=== PATIENT | female | born 1985 | race Caucasian/White ===

== ENCOUNTER 2018-03-21 06:14 | Inpatient (IN) | payer BC ==
[2018-03-21] MEDS ORDERED: ceFOXitin 2 GM IVPREMIX* 2 GM/50 ML BAG ONE (06:24)
[2018-03-21] MEDS ORDERED: Sodium Citrate/Citric Acid* 15 ML UDC ONE (07:45)
[2018-03-21] MEDS ORDERED: Morphine PF AMP (0.5MG/ML)* 5 MG/10 ML AMP ONE (07:51)
[2018-03-21] MEDS ORDERED: Bupivacaine-MPF SPINAL* 7.5 MG/ML - 2ML AMP ONE (07:51)
[2018-03-21] MEDS ORDERED: Lidocaine 1%* 5 ML VIAL ONE (07:55)
[2018-03-21] MEDS ORDERED: Ondansetron INJ* 2 MG/ML VIAL IV PRN ×2 (08:34→08:35)
[2018-03-21] MEDS ORDERED: Naloxone* 0.4 MG/ML 1 ML VIAL IV PRN ×2 (08:34→08:35)
[2018-03-21] MEDS ORDERED: fentaNYL* 50 MCG/ML 2 ML VIAL (100 MCG VIAL) IV PRN (08:34)
[2018-03-21] MEDS ORDERED: diPHENhydraMINE IV* 50 MG/ML 1 ml VIAL (BENADRYL) IV PRN (08:35)
[2018-03-21] MEDS ORDERED: DiMENhydriNATE IV* 50 MG/ML VIAL IV PUSH PRN (08:35)
[2018-03-21] MEDS ORDERED: Nalbuphine* 10 MG/ML 1 ML VIAL IV PRN (08:35)
[2018-03-21] MEDS ORDERED: oxyCODONE/Acetamin 5/325 MG* TAB PO PRN (08:35)
[2018-03-21] MEDS ORDERED: Ketorolac INJ* 30 MG/ML 1 ML VIAL ONE ×2 (09:00→14:29)
[2018-03-21] MEDS ORDERED: Dibucaine 1% 28.35 GM TUBE PR PRN (09:28)
[2018-03-21] MEDS ORDERED: Glycerin ADULT SUPP PR PRN (09:28)
[2018-03-21] MEDS ORDERED: Witch Hazel PAD* JAR TOPICAL PRN (09:28)
[2018-03-21] MEDS ORDERED: Oxytocin in LR* 20 UNITS/1,000 ML BAG IVPB SCH (10:00)
[2018-03-21] MEDS ORDERED: oxyCODONE/Acetamin 5/325 MG* TAB ONE (14:29)
[2018-03-21] MEDS: Ketorolac INJ* 30 MG/ML 1 ML VIAL IV PRN ×2 (14:33→21:42)
[2018-03-21] MEDS: Docusate CAP* 100 MG PO SCH ×2 (14:55→21:41)
[2018-03-21] MEDS: Simethicone TAB* 80 MG TAB.CHEW PO SCH ×2 (14:55→21:42)
[2018-03-22] MEDS ORDERED: oxyCODONE/Acetamin 5/325 MG* TAB PO PRN ×2 (00:05)
--- NOTE | 2018-03-22 01:18 | OP ---
DATE OF OPERATION: 03/21/18 - ROOM #117 DATE OF : 85 SURGEON: Anna Rangel MD COOK SOUP: Dr. Javier Dupont. ANESTHESIOLOGIST: Dr. Sosa. ANESTHESIA: Spinal. PRE-OP DIAGNOSIS: Intrauterine at 39 weeks, desires repeat section. POST-OP DIAGNOSIS: Intrauterine at 39 weeks, desires repeat section, delivered. OPERATIVE PROCEDURE: Repeat low transverse section. FINDINGS: Revealed a vertex female infant with Apgars 9 at 1 minute and 9 at 5 minutes, weight was 9 pounds 5 ounces, nuchal cord x1, no meconium. Normal- appearing tubes and ovaries bilaterally. Placenta manually extracted intact 3- vessel cord. Uterine cavity without evidence of retained membranes or placental tissue. ESTIMATED BLOOD LOSS: 500 cc. URINE OUTPUT: 100 cc of clear yellow urine. FLUIDS: 1600 cc of crystalloid. COMPLICATIONS: None apparent. DISPOSITION: Stable to recovery room. DESCRIPTION OF PROCEDURE: The patient was placed in dorsal lithotomy position. Abdomen was prepped and draped in a sterile standard fashion. The patient was identified with the universal protocol for correct patient, procedure, and position. After testing anesthesia to appropriate level, an incision was made through prior incision with a scalpel and this was carried down through to the fascia. Fascia was scored in the midline and the fascial incision was extended laterally and superiorly using Sampson scissors. Fascia was superiorly with blunt and sharp dissection. The peritoneum was then entered sharply and then the peritoneal incision was extended bluntly. Bladder blade was inserted. Lower uterine segment was identified. An Allis was used to tent up on the lower uterine segment. An incision was made with a scalpel and was carried down through to membranes. The incision was extended laterally and superiorly with bandage scissors. An amniotomy was created with an Allis with clear fluid. Head was delivered. Nuchal cord reduced. Anterior and posterior shoulder delivered. Cord was allowed to pulse for greater than 60 seconds. The cord was then clamped and cut and the was handed off to awaiting trade sales assistant, Dr. Andrade. Appropriate cord blood was obtained. Placenta was then manually extracted and noted to be intact and 3-vessel. Normal tubes and ovaries were appreciated and uterine cavity was explored and noted to be free of any membranes or placental tissue. The uterine incision itself was reapproximated in 2 layers, the first layer running locked 0 Vicryl and the second layer running imbricated 0 Vicryl. Hemostasis was noted. The uterus was returned intraabdominally. Colic gutters were lavaged. Hysterotomy site was revisualized and noted to be hemostatic. The peritoneum was then reapproximated using 3-0 Vicryl in a running fashion. The subfascial area was visualized, hemostasis assured and the fascia itself was reapproximated with 0 Vicryl x2 in a running fashion. Subcu was lavaged, hemostasis assured with Bovie coagulation and the skin itself was reapproximated using 4-0 Monocryl in a subcuticular fashion. Steris and Mastisol were applied. The patient tolerated the procedure well and went to recovery room in stable condition. [id number]/[facility] #: [id number] [place]
[2018-03-22] MEDS: Ketorolac INJ* 30 MG/ML 1 ML VIAL IV PRN (03:19)
[2018-03-22 07:18] LABS: ABS Basophils 0.1 10^3/ul (0-0.2); ABS Eosinophils 0.1 10^3/ul (0-0.6); ABS Lymphocytes 1.3 10^3/ul (1.0-4.8); ABS Monocytes 0.8 10^3/ul (0-0.8); ABS Neutrophils 8.6 10^3/ul (1.5-7.7); ABS Nucleated RBC 0 10^3/ul; Eosinophil % 0.9 % (0-6); Hematocrit 33 % (35-47); Hemoglobin 11.4 g/dl (12.0-16.0); Lymphocyte % 11.6 % (25-47); Mean Corpuscular HGB Conc 35 g/dl (31-36); Mean Corpuscular Hemoglobin 31 pg (27-31); Mean Corpuscular Volume 89 fL (80-97); Nucleated Red Blood Cells % 0.1; Platelet Count 119 10^3/ul (150-450); Red Blood Count 3.69 10^6/ul (4.00-5.40); Red Cell Distribution Width 15 % (10.5-15); White Blood Count 10.8 10^3/ul (3.5-10.8)
[2018-03-22] MEDS ORDERED: Ferrous Gluconate TAB* 324 MG TAB PO SCH (09:00)
[2018-03-22] MEDS: Simethicone TAB* 80 MG TAB.CHEW PO SCH ×4 (09:12→20:40)
[2018-03-22] MEDS: Docusate CAP* 100 MG PO SCH ×3 (09:13→20:40)
[2018-03-22] MEDS: Ibuprofen TAB* 600 MG PO PRN ×3 (09:13→23:49)
[2018-03-22] MEDS: DOCOSAHEXANOIC ACID 200 MG PO SCH (09:23)
[2018-03-22] MEDS: Acetaminophen TAB* 325 MG PO PRN ×2 (12:41→20:46)
[2018-03-23] MEDS: Ibuprofen TAB* 600 MG PO PRN ×2 (06:10→12:00)
[2018-03-23] MEDS: Docusate CAP* 100 MG PO SCH (08:33)
[2018-03-23] MEDS: Acetaminophen TAB* 325 MG PO PRN ×2 (08:33→12:00)
[2018-03-23] MEDS: Simethicone TAB* 80 MG TAB.CHEW PO SCH (08:33)
[2018-03-23 08:36] VITALS: BP 120/65
[2018-03-23] MEDS: DOCOSAHEXANOIC ACID 200 MG PO SCH (11:47)
== END 2018-03-23 12:14 | disposition home or self-care (01) | DRG 540 ==
LOC: MCHOB 06:14
PROVIDERS: ADMIT Obstetrics & Gynecology; ATTEND Obstetrics & Gynecology
PROC: 10D00Z1 Extraction of Products of Conception, Low, Open Approach (ICD-10-PCS; principal; 2018-03-21 07:45)
DX: O34.211 Maternal care for low transverse scar from previous cesarean delivery (principal); O69.81X0 Labor and delivery complicated by cord around neck, without compression, not applicable or unspecified; Z3A.39 39 weeks gestation of pregnancy; Z37.0 Single live birth
CPT/HCPCS: 36415; 85025; A9270-GY; J0694; J1885

== ENCOUNTER 2020-06-17 10:02 | Inpatient (IN) ==
[2020-06-17] MEDS ORDERED: Sodium Citrate/Citric Acid LIQ 15 ML UDC ONE (10:18)
[2020-06-17] MEDS ORDERED: ceFOXitin 2 GM IVPREMIX 2 GM/50 ML BAG ONE (10:18)
[2020-06-17] MEDS ORDERED: fentaNYL 100 mcg/2 ml 50 MCG/ML VIAL ONE (13:43)
[2020-06-17] MEDS ORDERED: Morphine PF AMP (0.5MG/ML) 5 MG/10 ML AMP ONE (13:48)
[2020-06-17] MEDS ORDERED: Oxytocin 10 UNITS/ML 1 ML VIAL ONE (14:09)
[2020-06-17] MEDS ORDERED: Ondansetron 4 mg VIAL 2 MG/ML 2 ml VIAL IV PRN (14:17)
[2020-06-17] MEDS ORDERED: diPHENhydraMINE IV 50 MG/ML 1 ml VIAL (BENADRYL) IV PRN (14:17)
[2020-06-17] MEDS ORDERED: Naloxone 0.4 mg VIAL 0.4 mg/ml 1 ml VIAL IV PRN (14:17)
[2020-06-17] MEDS ORDERED: Witch Hazel PAD JAR TOPICAL PRN (15:06)
[2020-06-17] MEDS ORDERED: Glycerin ADULT 2.4 gm SUPP PR PRN (15:06)
[2020-06-17] MEDS ORDERED: Dibucaine 1% OINT 28.35 GM TUBE PR PRN (15:06)
[2020-06-17] MEDS ORDERED: Lactated Ringers 1000 ml BAG 1,000 ML IV SCH (16:00)
[2020-06-17] MEDS ORDERED: Oxytocin in LR 20 UNITS/1,000 ML BAG IVPB SCH (16:00)
[2020-06-18 07:34] LABS: Hematocrit 33 % (35-47); Hemoglobin 11.3 g/dL (12.0-16.0); Mean Corpuscular HGB Conc 35 g/dL (31-36); Mean Corpuscular Hemoglobin 31 pg (27-31); Mean Corpuscular Volume 90 fL (80-97); Red Blood Count 3.63 10^6 /uL (3.70-4.87); Red Cell Distribution Width 15 % (10-15); White Blood Count 9.6 10^3/uL (3.5-10.8)
[2020-06-18 08:51] LABS: ABS Eosinophils 0.1 10^3/ul (0-0.6); ABS Monocytes 0.8 10^3/ul (0-0.8); ABS Neutrophils 7.7 10^3/ul (1.5-7.7); Eosinophil % 1.1 %; Lymphocyte % 10.3 %; Mean Platelet Volume 9.6 fL (7.4-10.4); Platelet Count 99 10^3/uL (150-450)
[2020-06-19 08:28] VITALS: BP 131/73
== END 2020-06-19 15:35 | disposition home or self-care (01) | DRG 540 ==
LOC: MCHOB 10:02
PROVIDERS: ADMIT Obstetrics & Gynecology; ATTEND Obstetrics & Gynecology